=== PATIENT | female | born 1995 | race Two or more races ===

== ENCOUNTER 2020-06-06 01:24 | Emergency (ER) | payer OTHER ==
[~2020-06-06] VITALS: Ht 170.2 cm; Wt 68.0 kg
[2020-06-06] MEDS ORDERED: PAIN RELIEF325 MG (01:51)
== END 2020-06-06 04:56 | disposition home or self-care (01) ==
LOC: ER 01:24
DX: K92.1 Melena (principal)

== ENCOUNTER 2022-09-11 05:51 | Emergency (ER) | payer OTHER ==
[~2022-09-11] VITALS: Ht 170.2 cm; Wt 81.6 kg
[~2022-09-11 05:51] MED LIST: PAIN RELIEF325 MG
== END 2022-09-11 10:10 | disposition home or self-care (01) ==
LOC: ER 05:51
DX: K64.8 Other hemorrhoids (principal)